=== PATIENT | female | born 1950 | race Caucasian/White ===

== ENCOUNTER → 2016-11-08 | Outpatient (CLI) | payer MEDICARE, OTHER ==
[~2016-11-08] MED LIST: ALBU8.5H5 IH; ATEN-39 PO; DIME50TA PO; ESCI20TA22 PO; IMIP25TA PO; LEVO50TA59 PO; [UNRECOGNIZED DRUG - CODE] PO
== END ==
LOC: WC.BC 10:00
DX: Z12.31 Encounter for screening mammogram for malignant neoplasm of breast (principal); N64.59 Other signs and symptoms in breast
CPT/HCPCS: 77063; G0202

== ENCOUNTER 2016-11-20 11:01 | Day surgery (SDC) | payer MEDICARE, OTHER ==
[2016-11-20] VITALS (12 sets, daily range): BP systolic 111–135; BP diastolic 61–76; PULSE 76–96; RESP 14–20; TEMP 97.4–98.2; O2SAT 91–100; Ht 162.6 cm; Wt 60.9 kg
[~2016-11-20] VITALS: Ht 162.6 cm; Wt 60.9 kg
[~2016-11-20 11:01] MED LIST changes: +CROM40SP NAS; +DIPH25CA84 PO; +FLUT9.9S NAS; +LIDOCAINE 1% (10mg/ml) 2ml SDV INJ ONE; +LR 1,000 ML IV SCH; +MULT-933 PO
--- OUTSIDE RECORDS SUMMARY | 2016-11-20 11:05 | XMS REPORT | Continuity of Care Document ---
Author Author [facility] Address [address] [place] [address] [facility] [place] [address] Phone Care Team Providers Care Senior Report Developer Name Role Phone Steve Claros PP Unavailable Payers Payer name Insurance type Covered alliance party ID Authorization(s) Unknown Problems Condition Effective Dates (start - stop) Clinical Status PAT (paroxysmal atrial tachycardia) - *Chronic Depression - *Chronic Hypothyroidism - *Chronic Migraine headache - *Chronic Allergic rhinitis, cause unspecified - *Chronic VARICELLA UNCOMPLICATED - HEPATITIS A W/O COMA - GOITER NOS - PURE HYPERCHOLESTEROLEM - 311 - DEPRESSIVE DISORDER NEC - ATTN DEFICIT W HYPERACT - MGR NOS WO NTRC W ST MGR - OTITIS MEDIA NOS - CONDUCT HEARING LOSS NOS - CARDIAC DYSRHYTHMIA NOS - CHRONIC SINUSITIS NOS - ALLERGIC RHINITIS NOS - 490 - BRONCHITIS NOS - IRRITABLE BOWEL SYNDROME - RENAL & URETERAL DIS NOS - Influenza Vaccine - Family History Family Member Diagnosis Age At Onset Status Unknown Social History Social History Element Description Quantity Unknown Allergies, Adverse Reactions, Alerts Substance Reaction Severity Status PHENYLEPHRINE HCL NAUSEA Unknown SULFA (SULFONAMIDE ANTIBIOTICS) RASH Unknown CODEINE NAUSEA Unknown CHLORPHENIRAMINE NAUSEA Unknown Medications Medication Instructions Dosage Effective Dates (start - stop) Status triamcinolone acetonide 0.1 % Topical Cream apply by topical route 2 times every day a thin layer to the affected area(s) 0 - Active atenolol 50 mg tablet Take 1 tablet by mouth every day. - Active Lexapro 20 mg tablet take 1/2 tab by oral route every day - Active levothyroxine 50 mcg tablet Take 1 tablet by mouth every day. - Active imipramine 25 mg tablet take 1 tablet (25MG) by oral route every day 25 MG - Active albuterol sulfate HFA 90 mcg/actuation Aerosol Inhaler inhale 2 puff by inhalation route every 4 - 6 hours as needed 0 - Active Immunizations Vaccine Date Status Comments Flu (split) (3 yrs or older) completed Results Test Name Date and Time Measure Units Reference Range Abnormal Flag Comments Panel Description: Chemistry Profile Glucose 11:25:00 96 mg/dL 70-99 BUN 11:25:00 14 mg/dL 10-20 Creatinine 11:25:00 1.02 mg/dL 0.57-1.11 Calcium 11:25:00 9.7 mg/dL 8.9-10.5 Sodium 11:25:00 142 mEq/L 135-144 Potassium 11:25:00 4.3 mEq/L 3.5-5.2 Chloride 11:25:00 106 mEq/L 99-111 CO2 11:25:00 27 mEq/L 22-31 Albumin 11:25:00 4.4 g/dL 3.4-4.8 Bilirubin Total 11:25:00 0.2 mg/dL 0.2-1.2 Alkaline Phosphatase 11:25:00 82 U/L 40-150 Protein 11:25:00 6.6 g/dL 6.2-8.1 ALT (SGPT) 11:25:00 34 U/L 0-55 AST (SGOT) 11:25:00 24 U/L 5-34 Anion Gap 11:25:00 9 3-20 Globulin 11:25:00 2.2 g/dL 1.8-4.0 Testing performed at [facility] [address] [place], [place] [id number] Laboratory Coordinator Daniel Velasquez MD Panel Description: TSH-[facility] TSH 11:25:00 1.49 uIU/mL 0.35-4.94 Testing performed at [facility] [address] [place] [id number] Laboratory Coordinator Daniel Velasquez MD Panel Description: EGFR-[facility] eGFR 11:25:00 55 mL/min >60 A Multiply eGFR results by 1.21 for race.Testing performed at [facility] [address] [place] [address] Laboratory Coordinator Daniel Velasquez MD Vital Signs Date / Time: Height Weight Pulse Rate Blood Pressure Temperature /10:30:00 64.25 in 137.00 lbs 92 /min 112/84 mm[Hg] 98.8 F Procedures Procedure Date Unknown Encounters Encounter Location Date Patient Visit [facility] Patient Visit Conversion Patient Visit [facility] Advance Directives Directive Effective Date Unknown
--- OUTSIDE RECORDS SUMMARY | 2016-11-20 11:05 | XMS REPORT | Continuity of Care Document ---
Author Author [facility] Organization [facility] Address Unknown Phone Unavailable Allergies Medications Problems Procedures Results Encounters ACCT No. Visit Date/Time Discharge Status Pt. Type Provider Facility Loc./Unit Complaint [id number] 05/11/2013 10:26:00 05/11/2013 23 :59:59 CLS Outpatient
[2016-11-20] MEDS ORDERED: MIDAZOLAM 5mg/5ml INJECTION ONE (12:18)
[2016-11-20] MEDS ORDERED: BENZOCAINE 20% Top. Anesth. SPRAY UD ONE (12:18)
[2016-11-20] MEDS ORDERED: LIDOCAINE VISCOUS 2% Oral Soln 15ml UD ONE (12:18)
[2016-11-20] MEDS ORDERED: FENTANYL 100mcg/2ml INJECTION ONE (12:18)
[2016-11-20] MEDS ORDERED: SALINE FLUSH 10ml SYRINGE ONE (12:18)
[2016-11-20] MEDS ORDERED: FENTANYL 100mcg/2ml INJECTION IV PRN (12:52)
[2016-11-20] MEDS ORDERED: MIDAZOLAM 5mg/5ml INJECTION IV PRN (12:52)
[2016-11-20] MEDS ORDERED: PANT40TA27 PO (13:12)
[2016-11-20] MEDS ORDERED: SUCR1TAB PO (13:12)
--- NOTE | 2016-11-21 06:54 | OPNOTEF ---
DATE OF PROCEDURE: 11/20/2016 PHYSICIAN: Isaiah Salguero DO PROCEDURE: Esophagogastroduodenoscopy. INDICATION FOR PROCEDURE Dysphagia. ASA CLASSIFICATION: 1 DESCRIPTION OF PROCEDURE Consent was signed and on the chart. Routine monitoring with ECG, continuous oximetry and noninvasive blood pressure was performed throughout the procedure and found to be within normal limits. IV sedation was performed with 4 mg of Versed and 40 mcg of fentanyl. Prior to the procedure, the patient was brought to the endoscopy lab where a brief review of her medical history and physical exam was performed. The procedure was described to her and she was agreeable to continue. All questions were answered. She was sprayed with a topical anesthetic to the posterior pharynx, then given IV sedation and placed in a left lateral decubitus position. The endoscope was advanced into the posterior pharynx without difficulty. Visualization of her vocal cords was normal. The endoscope was advanced into the esophagus down through the stomach, through the pylorus to the second part of the duodenum. The duodenal mucosa appeared normal with the exception of the duodenal cap, at which she did have duodenitis. This was biopsied. The endoscope was brought back into the distal antrum. Distal antrum appeared normal. The endoscope was retroflexed. She did have at least a moderately-sized axial type hiatal hernia. At the edge of this hiatal hernia, at the cardia of the stomach, there was gastritis. This was photographed and biopsied. The stomach was decompressed and the endoscope brought back to the GE junction, noting reflux esophagitis, LA classification A, and multiple biopsies were performed there as well. The remainder of her esophagus appeared free of pathology. She tolerated the procedure well. There were no complications. IMPRESSION 1. Reflux esophagitis, LA classification A, with biopsy. 2. Axial-type hiatal hernia, moderate in size. 3. Gastritis at the cardia of the stomach, biopsied. 4. Duodenitis of the duodenal cap, biopsied. RECOMMENDATIONS 1. Review the path report when available. 2. Will discontinue her Zantac. 3. Start her on pantoprazole 40 mg q. day and Carafate 1 g at h.s. MTDD
== END 2016-11-20 14:05 | disposition home or self-care (01) ==
LOC: SCU 11:01
PROVIDERS: ATTEND Internal Medicine
DX: K21.0 Gastro-esophageal reflux disease with esophagitis (principal); K22.70 Barrett's esophagus without dysplasia; K44.9 Diaphragmatic hernia without obstruction or gangrene; K29.60 Other gastritis without bleeding; K29.80 Duodenitis without bleeding; R13.10 Dysphagia, unspecified; Z80.0 Family history of malignant neoplasm of digestive organs; I10 Essential (primary) hypertension; E78.5 Hyperlipidemia, unspecified; E03.9 Hypothyroidism, unspecified; J45.990 Exercise induced bronchospasm; F41.9 Anxiety disorder, unspecified; F32.9 Major depressive disorder, single episode, unspecified; G47.00 Insomnia, unspecified; G44.59 Other complicated headache syndrome; Z79.899 Other long term (current) drug therapy
CPT/HCPCS: 43239; J2250; J3010; J7120